=== PATIENT | male | born 1955 | race Caucasian/White ===

== ENCOUNTER 2017-05-07 16:00 | Emergency (ER) | payer SELFPAY ==
[~2017-05-07] VITALS: Ht 185.4 cm; Wt 80.0 kg
[~2017-05-07 16:00] MED LIST: BENZ1TAB7 PO; DIVA500T PO; DOCU-150 PO; FERR-63 PO; LORA1TAB PO; MULT-1146 PO; RISP3TAB13 PO; TRAZ-132 PO
[2017-05-07 16:39] LABS: HEMATOCRIT. 40.7 % (42.0-52.0); HEMOGLOBIN. 13.8 g/dL (14.0-18.0); MEAN CORPUSCULAR HEMOGLOBIN 31.6 pg (28.0-32.0); MEAN CORPUSCULAR VOLUME 93.4 fL (80.0-94.0); MEAN PLATELET VOLUME 8.2 fl (7.4-10.4); PLATELET 197 x1000/uL (130-400); RED BLOOD CELL COUNT 4.35 mill/uL (4.7-6.1); RED CELL DISTRIBUTION WIDTH 13.8 % (11.6-14.6)
[2017-05-07 16:43] LABS: CHLORIDE 94 mEq/L (98-107)
[2017-05-07 16:53] LABS: CARBON DIOXIDE 28 mEq/L (21-32); ETHANOL BLOOD < 10 mg/dL
[2017-05-07 17:29] LABS: CLARITY URINE CLEAR (CLEAR); COLOR URINE DARK YELLOW (YELLOW); GLUCOSE URINE NEGATIVE (NEGATIVE); KETONES URINE TRACE (NEGATIVE); LEUKOCYTE ESTERASE URINE NEGATIVE (NEGATIVE); NITRITE URINE NEGATIVE (NEGATIVE); OCCULT BLOOD URINE 2+ (NEGATIVE); PH URINE 5.5 (4.5-8.0); PROTEIN URINE 2+ (NEGATIVE); SPECIFIC GRAVITY URINE 1.029 (1.005-1.030)
[2017-05-07 17:42] LABS: *AMPHETAMINES SCREEN URINE NEGATIVE (NEGATIVE); *BARBITURATES SCREEN URINE NEGATIVE (NEGATIVE); *BENZODIAZEPINES SCREEN URINE NEGATIVE (NEGATIVE); *COCAINE SCREEN URINE NEGATIVE (NEGATIVE); CANNABINOID URINE SCREEN NEGATIVE (NEGATIVE); METHADONE URINE SCREEN NEGATIVE (NEGATIVE); OPIATES URINE SCREEN PRESUMTIVE POSITIVE (NEGATIVE); PHENCYCLIDINE URINE SCREEN NEGATIVE (NEGATIVE)
[2017-05-07 17:54] LABS: PLATELET ESTIMATE NORMAL
[2017-05-07] MEDS: LORAZEPAM 2MG/ML CPJ IV ONE (18:42)
[2017-05-07] MEDS: VALPROATE SODIUM 500 MG in SODIUM CHLORIDE 0.9% 100 ML IV STA (19:12)
[2017-05-07 22:47] VITALS: BP 147/86
== END 2017-05-07 23:01 | disposition home or self-care (01) ==
LOC: ER 16:21
DX: R56.9 Unspecified convulsions (principal)
CPT/HCPCS: 36415; 70450; 72125; 80053; 80165; 80305; 81001; 85025; 96365; 96375; 99285; G0482; J2060; J3490; Z7610; J7050